=== PATIENT | female | born 1970 | race Caucasian/White ===

== ENCOUNTER 2017-09-28 14:01 | Inpatient (IN) | payer OTHER ==
[~2017-09-28] VITALS: Ht 162.6 cm; Wt 82.2 kg
[~2017-09-28 14:01] MED LIST: ALPRAZOLAM1 MG PO; CYCLOBENZAPRINE10 M1 PO; DELTASONE20 MG PO; HYDROXYCHLOROQ200 M2 PO; IBU800 MG PO; METHADONE H5 MG/5 ML PO; PERCOCET 325 MG1 TA2 PO; SYNTHROID112 MCG PO; TOPIRAMATE50 MG PO; VICODIN 5-3001 EACH PO; VITAMIN D2000 UNIT PO; ZOFRAN4 M1 SL
--- NOTE | 2017-09-28 15:10 | RADIOLOGY REPORT ---
EXAMINATION: XR CHEST CLINICAL INFORMATION: Chest pain. COMPARISON: 06/05/2014 TECHNIQUE: 2 views of the chest were obtained. FINDINGS: The cardiomediastinal silhouette is unremarkable. The lungs appear clear. There appears to be blunting of the right posterior costophrenic angle suggesting a small effusion. No consolidation, pulmonary edema or pneumothorax. There are minor multilevel degenerative changes of the spine without evidence of acute osseous abnormality. IMPRESSION: Blunting of the right posterior costophrenic angle suggesting a small right-sided effusion.
[2017-09-28 15:39] LABS: ABSOLUTE BASOPHIL COUNT 0.1 /CUMM (0.0-0.2); ABSOLUTE EOSINOPHIL COUNT 0.2 /CUMM (0.0-0.7); ABSOLUTE GRANULOCYTE CT 8.1 /CUMM (1.4-6.5); ABSOLUTE LYMPH COUNT 1.6 /CUMM (1.2-3.4); ABSOLUTE MONOCYTE COUNT 0.7 /CUMM (0.10-0.60); BASOPHIL % 0.5 % (0.0-2.0); EOSINOPHIL % 1.8 % (0-5); GRANULOCYTE % 76.1 % (42.2-75.2); HEMATOCRIT 41.9 % (37-47); MEAN CORPUSCULAR HGB 32.3 PG (27.0-31.0); MEAN CORPUSCULAR HGB CONC 33.6 G/DL (33.0-37.0); MEAN CORPUSCULAR VOLUME 96.1 FL (81.0-99.0); MEAN PLATELET VOLUME 7.7 FL (7.4-10.4); PLATELET COUNT 262 /CUMM (130-400); RBC DISTRIBUTION WIDTH 13.4 % (11.5-14.5); RED BLOOD CELL CT 4.36 /CUMM (4.20-5.40); WHITE BLOOD CELL COUNT 10.6 /CUMM (4.8-10.8)
--- NOTE | 2017-09-28 18:07 | ED CARDIAC/CP/PALPITATIONS ---
History of Present Illness General Chief Complaint: Chest Pain Stated Complaint: CP,LOWER BACK PAIN ON RT SIDE Source: patient Exam Limitations: no limitations Vital Signs & Intake/Output Vital Signs & Intake/Output Vital Signs Date Time Temp Pulse Resp B/P B/P Pulse O2 O2 Flow FiO2 Mean Ox Delivery Rate 09/28 2100 98.6 65 16 116/74 98 Room Air 09/28 1921 98.6 68 16 103/59 98 Room Air 09/28 1813 96 Room Air 09/28 1748 98.3 78 16 120/75 97 Room Air 09/28 1413 98.2 102 16 131/102 98 Room Air Room Air Allergies Coded Allergies: No Known Allergies (09/28/17) Reconcile Medications Alprazolam 1 MG TAB 1 TAB PO 4 TIMES/DAY ANXIETY (Reported) Cholecalciferol (Vitamin D3) (Vitamin D) 2,000 UNIT CAPSULE 1 CAP PO DAILY SUPPLEMENT (Reported) Cyclobenzaprine HCl 10 MG TABLET 1 TAB PO DAILY PRN MUSCLE SPASMS (Reported) Hydrocodone/Acetaminophen (Vicodin 5-300 MG Tablet) 1 EACH TABLET 1-2 TAB PO Q6P PRN pain Hydroxychloroquine Sulfate 200 MG TABLET 1 TAB PO BID UNKNOWN (Reported) Ibuprofen (Ibu) 800 MG TAB 1 TAB PO PRN PAIN (Reported) Levothyroxine Sodium (Synthroid) 112 MCG TABLET 1 TAB PO DAILY AC THYROID ( Reported) METHADONE HCL (Methadone HCl) 5 MG/5 ML [place] 28 MG PO DAILY PAIN (Reported) Prednisone (Deltasone) 20 MG TABLET 2 TAB PO DAILY RASH Topiramate 50 MG TAB 1 TAB PO BID MIGRAINES (Reported) Triage Note: PT TO TRIAGE WITH RIGHT CHEST PAIN THAT RADIATES INTO HER NECK. PT STATES SHE HAD THE SAME PAIN LAST WEEK AND IT RESOLVED ON ITS OWN. PT HAS NOT TAKEN ANY MEDS FOR PAIN. PT DENIES SOB. SKIN WARM AND DRY. Triage Nurses Notes Reviewed? yes Onset: Abrupt Duration: week(s):, changing over time, continues in ED, intermittent Timing: single episode today Quality/Severity: moderate, sharp, stabbing Location: right chest Radiation: neck, back Activities at Onset: none, rest Prior Chest Pain/Card Workup: no prior chest pain, no prior cardiac workup Modifying Factors: Worsens With: breathing, movement, palpation. Nitro Today/Relief: no nitro taken today Aspirin Today: no aspirin today LMP (ages 10-50): unknown : No Patient currently breastfeeds: No HPI: 46-year-old female past medical history of fibromyalgia, opioid abuse, migraines , hep C, presents for evaluation of chest pain. Patient states that symptoms started initially about one week ago and resolved on their own and restarted again today. The pain is located in the right side of the chest radiates up to the right shoulder right neck and right back. The pain is worse with deep inspiration and movement of the right upper extremity or palpation of the area. No trauma or triggering event. The pain is severe she rates his head is not taking any medicine for this. She is on methadone. No hemoptysis lower extremity edema recent surgery or history of blood clots. No personal family history of heart disease. There are no alleviating or aggravating factors. Nothing seems to make the pain better or worse. She does report some associated nausea but no vomiting no sweats or chills. (Balta Liz) Past History Travel History Traveled to [place] past 21 day No Medical History Any Pertinent Medical History? see below for history Neurological: migraine EENT: NONE Cardiovascular: hyperlipidemia Respiratory: asthma Gastrointestinal: NONE Hepatic: hepatitis C Renal: NONE Musculoskeletal: NONE Psychiatric: anxiety, IVDRUG HISTORY Endocrine: hypothyroidism Blood Disorders: NONE Cancer(s): thyroid cancer History of MRSA: No History of VRE: No History of CDIFF: No Surgical History Surgical History: hysterectomy Psychosocial History Who do you live with Significant Other What is your primary language P[place]deinig Tobacco Use: Current Daily Use Daily Tobacco Use Amount/Type: => 5 Cigarettes daily ETOH Use: denies use Illicit Drug Use: denies illicit drug use Family History Hx Contributory? No (Balta Liz) Review of Systems Review of Systems Constitutional: Reports: no symptoms. EENTM: Reports: no symptoms. Respiratory: Reports: see HPI, short of breath. Cardiovascular: Reports: see HPI, chest pain. GI: Reports: no symptoms. Genitourinary: Reports: no symptoms. Musculoskeletal: Reports: see HPI, back pain, muscle pain. Skin: Reports: no symptoms. Neurological/Psychological: Reports: no symptoms. Hematologic/Endocrine: Reports: no symptoms. Immunologic/Allergic: Reports: no symptoms. All Other Systems: Reviewed and Negative (Balta Liz) Physical Exam Physical Exam General Appearance: well developed/nourished, alert, awake, anxious, moderate distress Head: atraumatic, normal appearance Eyes: Bilateral: normal appearance, PERRL, EOMI. Ears, Nose, Throat: normal pharynx, normal ENT inspection, hearing grossly normal Neck: normal inspection, supple, full range of motion Respiratory: normal breath sounds, no respiratory distress, lungs clear, CHEST WALL TENDERNESS TO PALPATION dIFFUSELY. pAIN REPRODUCIBLE WITH RANGE OF MOTION OF THE RIGHT ARM Cardiovascular: normal peripheral pulses, tachycardia Peripheral Pulses: 2+ radial (R), 2+ radial (L) Gastrointestinal: normal bowel sounds, soft, no organomegaly, tenderness ( DIFFUSE ) Rectal: normal rectal tone, heme negative stool Back: normal inspection, normal range of motion, no vertebral tenderness Extremities: normal inspection, normal range of motion, no edema Neurologic/Psych: no motor/sensory deficits, awake, alert, oriented x 3, normal gait Skin: intact, normal color, warm/dry Lymphatic: no anterior cervical nani Core Measures ACS in differential dx? No CVA/TIA Diagnosis No Sepsis Present: No Sepsis Focused Exam Completed? No (Moiz LIGHT,Balta) Progress Differential Diagnosis: AMI, aortic dissection, atrial fibrillation, CHF/pulm edema, costochondritis, musculoskeletal pain, pancreatitis, pericarditis, pneumonia, pneumothorax, PSVT, pulmonary embolism, PUD/GERD, PVCs/PACs, rib fracture Plan of Care: Orders Procedure Date/time Status Heart Healthy Diet 09/29 B Active PARTIAL THROMBOPLASTIN TIME 09/29 0240 Active Pathway - chart 09/28 2124 Active House Staff 09/28 2124 Active Patient Data 09/28 2124 Active Code Status 09/28 2124 Active Patient Data 09/28 2034 Active Weight 09/28 2026 Active Patient Data 09/28 2016 Active ED Holding Orders 09/28 2008 Active Admit to inpatient 09/28 2008 Active Vital Signs 09/28 2008 Active Code Status 09/28 2008 Complete Add-on Test (ER Only) 09/28 1956 Active Add-on Test (ER Only) 09/28 1933 Active Intake & Output 09/28 1813 Active TROPONIN LEVEL 09/28 1800 Complete EKG 09/28 1800 Active URINALYSIS 09/28 1731 Complete Add-on Test (ER Only) 09/28 1730 Active Add-on Test (ER Only) 09/28 1702 Active PARTIAL THROMBOPLASTIN TIME 09/28 1524 Complete PROTHROMBIN TIME 09/28 1524 Complete LIPASE 09/28 1524 Complete D-DIMER 09/28 1524 Complete B-TYPE NATRIURETIC PEP (BNP) 09/28 1524 Complete TROPONIN LEVEL 09/28 1417 Complete COMPREHENSIVE METABOLIC PANEL 09/28 141 Complete CBC WITHOUT DIFFERENTIAL 09/28 141 Complete EKG 09/28 1402 Active VTE Mechanical Prophylaxis 09/28 UNK Active Current Medications Sig/Elinor Start time Last Medication Dose Stop Time Status Admin Acetaminophen 325 MG Q6 PRN 09/28 2129 AC (Tylenol) Heparin Sodium 25,000 UNIT Q24H 09/29 1999 AC 09/28 (Porcine) 2039 (Heparin) Sodium Chloride 500 ML Laboratory Tests 09/28/171818: Urinalysis LIGHT H, Urine Color YEL, Urine Clarity CLEAR, Urine pH 6.0, Ur Specific [place] >= 1.030, Urine Protein NEG, Urine Ketones NEG, Urine Nitrite NEG, Urine Bilirubin NEG, Urine Urobilinogen 0.2, Ur Leukocyte Esterase NEG, Ur Microscopic SEDIMENT EXAMINED, Urine RBC 1-3, Ur Epithelial Cells MOD H, Urine Bacteria MANY H, Urine Mucus MANY H, Urine Hemoglobin TRACE-INTACT, Urine Glucose NEG 09/28/17 181: Troponin I < 0.01 09/28/17 1524: Anion Gap 11, Estimated GFR > 60, BUN/Creatinine Ratio 17.1, Glucose 82, Calcium 9.2, Total Bilirubin 0.7, AST 14, ALT 19, Alkaline Phosphatase 75, Troponin I < 0.01, Sfg-L-Xaqcipzzaef Pept 43.2, Total Protein 6.8, Albumin 4.2, Globulin 2.6, Albumin/Globulin Ratio 1.6, Lipase 113, PT 11.8, INR 1.08, APTT 32, D-Dimer High Sensitivty 893 H, CBC w Diff NO MAN DIFF REQ, RBC 4.36, MCV 96.1, MCH 32.3 H, MCHC 33.6, RDW 13.4, MPV 7.7, Gran % 76.1 H, Lymphocytes % 14.7 L, Monocytes % 6.9, Eosinophils % 1.8, Basophils % 0.5, Absolute Granulocytes 8.1 H, Absolute Lymphocytes 1.6, Absolute Monocytes 0.7 H, Absolute Eosinophils 0.2, Absolute Basophils 0.1 Patient seen and evaluated. She certainly with pleuritic chest pain. On initial evaluation she is tachycardic. No hypoxia. The pain is reproducible with palpation and range of motion. We'll check blood work including d-dimer and EKGs. BLOOD WORK Shows an elevated d-dimer. CTA ordered. Patient was medicated with Toradol and is feeling somewhat better. Troponin negative remaining blood work is within normal limits. CTA is positive for a segmental PE. No signs of right heart strain troponin was negative 2 EKG unchanged 2. Spoke with Dr. DARYL de león regarding possibility of discharge on hour course however he recommends admission and heparinization. Rectal exam is negative for blood HEPARIN been ordered. Patient be admitted to telemetry. Discussed with Dr. Garcia he agrees. Diagnostic Imaging: Viewed by Me: CT Scan. Discussed w/RAD: CT Scan. Initial ED EKG: no ST T wave changes, SINUS TACHYCARDIA RATE 100 Comments: PATIENT: ROBIN CHAVEZ PRESENT AGE: 46 PATIENT ACCOUNT NO: [id number] : 72 LOCATION: [facility] ORDERING PHYSICIAN: Balta LIGHT SERVICE DATE: 09/28/17 EXAM TYPE: CAT - CT ABD & PELVIS W IV CONTRAST; CTA CHEST-PULMONARY EMBOLISM EXAMINATION: CT ANGIOGRAM OF THE CHEST WITH CONTRAST (CT PULMONARY ANGIOGRAM FOR PE) CLINICAL INFORMATION: Chest pain and shortness of breath. COMPARISON: No pertinent prior studies are available for comparison. TECHNIQUE: Prior to contrast administration, noncontrast localization images were obtained. Subsequently, multidetector volumetric imaging was performed from the thoracic inlet to below the diaphragms following the administration of 95 mL Optiray 320 intravenous contrast. No contrast reaction reported. Sagittal, coronal, and MIP oblique sagittal reformatted images were obtained on the CT workstation, uploaded to PACS, and reviewed. DLP: Total exam dose-length product 1086 mGy-cm (for CT exams of the chest, abdomen and pelvis) FINDINGS: QUALITY OF STUDY/CONTRAST BOLUS: Satisfactory. PULMONARY ARTERIES: Pulmonary arteries are normal in size. There is an embolic filling defect within a subsegmental branch of the medial right lower lobe. Otherwise, no embolic filling defects are identified within the main, lobar or segmental vessels. THORACIC AORTA: Thoracic aorta is normal in caliber; no aneurysm or dissection. LUNGS AND PLEURA: Trachea and central airways are widely patent and normal in caliber. Small right pleural effusion with compressive atelectasis in posterior right lower lobe. Otherwise, lungs are unremarkable. CARDIOVASCULAR: The heart size is normal. No inward bowing of the interventricular septum. No pericardial effusion. MEDIASTINUM: The esophagus has normal wall thickness. No mediastinal mass. LYMPHATICS: No pathologic sized axillary, hilar or mediastinal lymph nodes. UPPER ABDOMEN: No reflux of contrast into the inferior vena cava. Abdominal findings are dictated separately (see below). OSSEOUS STRUCTURES: No acute or suspicious osseous abnormality within the thorax. IMPRESSION: - There is a pulmonary embolism within a subsegmental branch of the right lower lobe. - Associated small right pleural effusion with compressive atelectasis of the posterior right lower lobe. The critical test result of the pulmonary embolism was discussed with Balta Rockwell of the Emergency Room at 7:33 PM on 09/28/2017 and it was ascertained that the content and the importance of the findings was understood at the time of the direct communication. EXAMINATION: CT ABDOMEN AND PELVIS WITH IV CONTRAST CLINICAL INFORMATION: Suprapubic abdominal pain. Evaluate for appendicitis. COMPARISON: CT images of the abdomen and pelvis from 06/11/2012. Abdominal ultrasound from 05/15/2017. TECHNIQUE: Multidetector CT imaging examination of the abdomen and pelvis was performed after intravenous contrast administration (as noted in the chest CT above). Axial images are displayed at 0.625 mm and 5 mm slice thickness. Coronal and sagittal reformatted images were generated at the technologist's workstation and submitted for review. FINDINGS: HEPATOBILIARY: Liver has normal size, contour and attenuation. Gallbladder is normal. No intrahepatic or extra hepatic bile duct dilatation. PANCREAS: Normal. SPLEEN: Normal. ADRENAL GLANDS: Normal. KIDNEYS, URETERS, BLADDER: Kidneys are normal in size and enhance symmetrically. No nephrolithiasis, hydroureteronephrosis or perinephric edema. The urinary bladder is unremarkable. GI TRACT AND PERITONEUM: Bowel loops are normal in caliber. The appendix is normal. No evidence of acute inflammation or obstruction along the gastrointestinal tract. No ascites, pneumoperitoneum or abscess. ABDOMINAL WALL: Unremarkable. VASCULAR: Abdominal aorta is normal in caliber. Inferior vena cava is normal. LYMPH NODES: No pathologic sized lymph nodes within the abdomen or pelvis. PELVIC VISCERA: The uterus is absent. The dominant follicle of the left ovary measures up to 2.5 cm. No pelvic free fluid. OSSEOUS STRUCTURES: The lumbar vertebra have normal height and alignment. No evidence of degenerative disc disease, fracture or subluxation. Pelvic bones and proximal femurs are intact. IMPRESSION: - No acute findings within the abdomen or pelvis. - No evidence of enteritis, appendicitis or bowel obstruction. DICTATED BY: Kerwin Avitia MD DATE/TIME DICTATED:09/28/171919 ROUTE SALESMAN AND DRIVER:MITCH DATE/TIME TRANSCRIBED:09/28/171919 CONFIDENTIAL, DO NOT COPY WITHOUT APPROPRIATE AUTHORIZATION. <Electronically signed in Other Vendor System> SIGNED BY: Kerwin Avitia MD 09/28/171937 PATIENT: ROBIN CHAVEZ PRESENT AGE: 46 PATIENT ACCOUNT NO: [id number] : 72 LOCATION: [facility] ORDERING PHYSICIAN: Balta LIGHT SERVICE DATE: 09/28/17 EXAM TYPE: CAT - CT ABD & PELVIS W IV CONTRAST; CTA CHEST-PULMONARY EMBOLISM EXAMINATION: CT ANGIOGRAM OF THE CHEST WITH CONTRAST (CT PULMONARY ANGIOGRAM FOR PE) CLINICAL INFORMATION: Chest pain and shortness of breath. COMPARISON: No pertinent prior studies are available for comparison. TECHNIQUE: Prior to contrast administration, noncontrast localization images were obtained. Subsequently, multidetector volumetric imaging was performed from the thoracic inlet to below the diaphragms following the administration of 95 mL Optiray 320 intravenous contrast. No contrast reaction reported. Sagittal, coronal, and MIP oblique sagittal reformatted images were obtained on the CT workstation, uploaded to PACS, and reviewed. DLP: Total exam dose-length product 1086 mGy-cm (for CT exams of the chest, abdomen and pelvis) FINDINGS: QUALITY OF STUDY/CONTRAST BOLUS: Satisfactory. PULMONARY ARTERIES: Pulmonary arteries are normal in size. There is an embolic filling defect within a subsegmental branch of the medial right lower lobe. Otherwise, no embolic filling defects are identified within the main, lobar or segmental vessels. THORACIC AORTA: Thoracic aorta is normal in caliber; no aneurysm or dissection. LUNGS AND PLEURA: Trachea and central airways are widely patent and normal in caliber. Small right pleural effusion with compressive atelectasis in posterior right lower lobe. Otherwise, lungs are unremarkable. CARDIOVASCULAR: The heart size is normal. No inward bowing of the interventricular septum. No pericardial effusion. MEDIASTINUM: The esophagus has normal wall thickness. No mediastinal mass. LYMPHATICS: No pathologic sized axillary, hilar or mediastinal lymph nodes. UPPER ABDOMEN: No reflux of contrast into the inferior vena cava. Abdominal findings are dictated separately (see below). OSSEOUS STRUCTURES: No acute or suspicious osseous abnormality within the thorax. IMPRESSION: - There is a pulmonary embolism within a subsegmental branch of the right lower lobe. - Associated small right pleural effusion with compressive atelectasis of the posterior right lower lobe. The critical test result of the pulmonary embolism was discussed with Balta Rocwkell of the Emergency Room at 7:33 PM on 09/28/2017 and it was ascertained that the content and the importance of the findings was understood at the time of the direct communication. EXAMINATION: CT ABDOMEN AND PELVIS WITH IV CONTRAST CLINICAL INFORMATION: Suprapubic abdominal pain. Evaluate for appendicitis. COMPARISON: CT images of the abdomen and pelvis from 06/11/2012. Abdominal ultrasound from 05/15/2017. TECHNIQUE: Multidetector CT imaging examination of the abdomen and pelvis was performed after intravenous contrast administration (as noted in the chest CT above). Axial images are displayed at 0.625 mm and 5 mm slice thickness. Coronal and sagittal reformatted images were generated at the technologist's workstation and submitted for review. FINDINGS: HEPATOBILIARY: Liver has normal size, contour and attenuation. Gallbladder is normal. No intrahepatic or extra hepatic bile duct dilatation. PANCREAS: Normal. SPLEEN: Normal. ADRENAL GLANDS: Normal. KIDNEYS, URETERS, BLADDER: Kidneys are normal in size and enhance symmetrically. No nephrolithiasis, hydroureteronephrosis or perinephric edema. The urinary bladder is unremarkable. GI TRACT AND PERITONEUM: Bowel loops are normal in caliber. The appendix is normal. No evidence of acute inflammation or obstruction along the gastrointestinal tract. No ascites, pneumoperitoneum or abscess. ABDOMINAL WALL: Unremarkable. VASCULAR: Abdominal aorta is normal in caliber. Inferior vena cava is normal. LYMPH NODES: No pathologic sized lymph nodes within the abdomen or pelvis. PELVIC VISCERA: The uterus is absent. The dominant follicle of the left ovary measures up to 2.5 cm. No pelvic free fluid. OSSEOUS STRUCTURES: The lumbar vertebra have normal height and alignment. No evidence of degenerative disc disease, fracture or subluxation. Pelvic bones and proximal femurs are intact. IMPRESSION: - No acute findings within the abdomen or pelvis. - No evidence of enteritis, appendicitis or bowel obstruction. DICTATED BY: Kerwin Avitia MD DATE/TIME DICTATED:09/28/171919 ROUTE SALESMAN AND DRIVER:MITCH DATE/TIME TRANSCRIBED:09/28/171919 CONFIDENTIAL, DO NOT COPY WITHOUT APPROPRIATE AUTHORIZATION. <Electronically signed in Other Vendor System> SIGNED BY: Kerwin Avitia MD 09/28/171937 (Balta Liz) Departure Departure Disposition: STILL A PATIENT Condition: Stable Clinical Impression Primary Impression: Pulmonary embolism Qualifiers: Pulmonary embolism type: other Chronicity: acute Acute cor pulmonale presence: without acute cor pulmonale Qualified Code: I26.99 - Other pulmonary embolism without acute cor pulmonale Referrals: Jazmyn Sarabia APRN (PCP/Family) Departure Forms: Customer Survey General Discharge Information Admission Note Spoke With: Salvatore Montoya MD Documentation of Exam: Documentation of any treatments & extenuating circumstances including Concerns Regarding Discharge (functional status, medication knowledge or non-compliance, living conditions, etc.) that warrant an admission rather than observation: [ Hypercoagulability workup, telemetry, serial labs, IV heparin, pulmonology consult, hematology consult] (Balta Liz) PA/SALES TEAM RECRUITER Co-Sign Statement Statement: ED Attending supervision documentation- [X] I saw and evaluated the patient. I have also reviewed all the pertinent lab results and diagnostic results. I agree with the findings and the plan of care as documented in the PA's/SALES TEAM RECRUITER's documentation. [X] I have reviewed the ED Record and agree with the PA's/SALES TEAM RECRUITER's documentation. [] Additions or exceptions (if any) to the PAs/SALES TEAM RECRUITER's note and plan are summarized below: [Patient to be admitted for a pulmonary embolism. Anticoagulation, pulmonary consultation] (Radha VELEZ,Isidro Maldonado) Critical Care Note Critical Care Note Critical Care Time: non-applicable (Balta Liz)
--- NOTE | 2017-09-28 19:38 | CT SCAN REPORT ---
EXAMINATION: CT ANGIOGRAM OF THE CHEST WITH CONTRAST (CT PULMONARY ANGIOGRAM FOR PE) CLINICAL INFORMATION: Chest pain and shortness of breath. COMPARISON: No pertinent prior studies are available for comparison. TECHNIQUE: Prior to contrast administration, noncontrast localization images were obtained. Subsequently, multidetector volumetric imaging was performed from the thoracic inlet to below the diaphragms following the administration of 95 mL Optiray 320 intravenous contrast. No contrast reaction reported. Sagittal, coronal, and MIP oblique sagittal reformatted images were obtained on the CT workstation, uploaded to PACS, and reviewed. DLP: Total exam dose-length product 1086 mGy-cm (for CT exams of the chest, abdomen and pelvis) FINDINGS: QUALITY OF STUDY/CONTRAST BOLUS: Satisfactory. PULMONARY ARTERIES: Pulmonary arteries are normal in size. There is an embolic filling defect within a subsegmental branch of the medial right lower lobe. Otherwise, no embolic filling defects are identified within the main, lobar or segmental vessels. THORACIC AORTA: Thoracic aorta is normal in caliber; no aneurysm or dissection. LUNGS AND PLEURA: Trachea and central airways are widely patent and normal in caliber. Small right pleural effusion with compressive atelectasis in posterior right lower lobe. Otherwise, lungs are unremarkable. CARDIOVASCULAR: The heart size is normal. No inward bowing of the interventricular septum. No pericardial effusion. MEDIASTINUM: The esophagus has normal wall thickness. No mediastinal mass. LYMPHATICS: No pathologic sized axillary, hilar or mediastinal lymph nodes. UPPER ABDOMEN: No reflux of contrast into the inferior vena cava. Abdominal findings are dictated separately (see below). OSSEOUS STRUCTURES: No acute or suspicious osseous abnormality within the thorax. IMPRESSION: - There is a pulmonary embolism within a subsegmental branch of the right lower lobe. - Associated small right pleural effusion with compressive atelectasis of the posterior right lower lobe. The critical test result of the pulmonary embolism was discussed with Balta Rockwell of the Emergency Room at 7:33 PM on 09/28/2017 and it was ascertained that the content and the importance of the findings was understood at the time of the direct communication. EXAMINATION: CT ABDOMEN AND PELVIS WITH IV CONTRAST CLINICAL INFORMATION: Suprapubic abdominal pain. Evaluate for appendicitis. COMPARISON: CT images of the abdomen and pelvis from 06/11/2012. Abdominal ultrasound from 05/15/2017. TECHNIQUE: Multidetector CT imaging examination of the abdomen and pelvis was performed after intravenous contrast administration (as noted in the chest CT above). Axial images are displayed at 0.625 mm and 5 mm slice thickness. Coronal and sagittal reformatted images were generated at the technologist's workstation and submitted for review. FINDINGS: HEPATOBILIARY: Liver has normal size, contour and attenuation. Gallbladder is normal. No intrahepatic or extra hepatic bile duct dilatation. PANCREAS: Normal. SPLEEN: Normal. ADRENAL GLANDS: Normal. KIDNEYS, URETERS, BLADDER: Kidneys are normal in size and enhance symmetrically. No nephrolithiasis, hydroureteronephrosis or perinephric edema. The urinary bladder is unremarkable. GI TRACT AND PERITONEUM: Bowel loops are normal in caliber. The appendix is normal. No evidence of acute inflammation or obstruction along the gastrointestinal tract. No ascites, pneumoperitoneum or abscess. ABDOMINAL WALL: Unremarkable. VASCULAR: Abdominal aorta is normal in caliber. Inferior vena cava is normal. LYMPH NODES: No pathologic sized lymph nodes within the abdomen or pelvis. PELVIC VISCERA: The uterus is absent. The dominant follicle of the left ovary measures up to 2.5 cm. No pelvic free fluid. OSSEOUS STRUCTURES: The lumbar vertebra have normal height and alignment. No evidence of degenerative disc disease, fracture or subluxation. Pelvic bones and proximal femurs are intact. IMPRESSION: - No acute findings within the abdomen or pelvis. - No evidence of enteritis, appendicitis or bowel obstruction.
[2017-09-28 20:03] LABS: PT 11.8 SEC (9.4-12.5); PTT 32 SEC (25-37)
--- NOTE | 2017-09-28 20:47 | History & Physical ---
MarinRosa 09/28/172045: General Information and HPI MD Statement: I have seen and personally examined ROBIN GARCIA and documented this H&P. The patient is a 46 year old F who presented with a patient stated chief complaint of [PE]. Source of Information: patient, old records Exam Limitations: no limitations History of Present Illness: Ms. Garcia is a 46yo F w/ PMH of migraine not on Topamax, hypothyroidism s/P thyroidectomy secondary to thyroid cancer, HLD, anxiety on as needed Xanax, Hx Hep C/IVDA, s/p hysterectomy 2/2 endometriosis, fibromyalgia. Patient endorsed chest pain for the past 2 days, with the first episode around on Thursday with right-sided neck/back pain that she took some Motrin and rested and went away. However the same kind of thing happened today at work was on specific trigger and this was like a stabbing pain in the right side of the chest, and she stopped walking and she cannot really talk over the phone. She was sent to the ER after. Patient had no previous similar episodes, however had the grandmother that has some blood clot history. Patient denies any OCP use as she is status post hysterectomy. Patient had no recent major surgeries, has been ambulatory in the house, and had recent travel to [place] by a car within [address]. Patient has a history of using Plaquenil, however she was not aware of the medication name. She had a remote history of "skin bumps" at the back of her ear, that she related to the use of Plaquenil, however she is not sure as well. She used to see a algebra tutor in [place]. However patient denied any awareness of vocabulary including sarcoidosis/lupus. During our clinical interaction, patient denied fever/night sweat/weight change/ cough/SOB/Chest Pain/Palpitation/exercise intolerance/Abdominal pain/bowel movement/urinary abnormality, or other skin/musculoskeletal/neurological disorders/mood change/insomnia/dietary/appetite change. -Smoking: current active smoker -Alcohol: occassional -Rec Drugs: remote use, now on 28mg methadone daily by [employer] [facility] ??? Allergies/Medications Allergies: Uncoded Allergies: VITAMIN B INJECTION (SWELLING 09/28/17) Home Med list Alprazolam 1 MG TAB 1 TAB PO 4 TIMES/DAY ANXIETY (Reported) Cholecalciferol (Vitamin D3) (Vitamin D) 2,000 UNIT CAPSULE 1 CAP PO DAILY SUPPLEMENT (Reported) Cyclobenzaprine HCl 10 MG TABLET 1 TAB PO DAILY PRN MUSCLE SPASMS (Reported) Hydrocodone/Acetaminophen (Vicodin 5-300 MG Tablet) 1 EACH TABLET 1-2 TAB PO Q6P PRN pain Hydroxychloroquine Sulfate 200 MG TABLET 1 TAB PO BID UNKNOWN (Reported) Ibuprofen (Ibu) 800 MG TAB 1 TAB PO PRN PAIN (Reported) Levothyroxine Sodium (Synthroid) 112 MCG TABLET 1 TAB PO DAILY AC THYROID ( Reported) METHADONE HCL (Methadone HCl) 5 MG/5 ML [place] 28 MG PO DAILY PAIN (Reported) Prednisone (Deltasone) 20 MG TABLET 2 TAB PO DAILY RASH Topiramate 50 MG TAB 1 TAB PO BID MIGRAINES (Reported) Past History Travel History Traveled to [place] past 21 day No Medical History Neurological: migraine EENT: NONE Cardiovascular: hyperlipidemia Respiratory: asthma Gastrointestinal: NONE Hepatic: hepatitis C Renal: NONE Musculoskeletal: NONE Psychiatric: anxiety, IVDRUG HISTORY Endocrine: hypothyroidism Blood Disorders: NONE Cancer(s): thyroid cancer History of MRSA: No History of VRE: No History of CDIFF: No Surgical History Surgical History: hysterectomy Past Family/Social History Psychosocial History ETOH Use: denies use Illicit Drug Use: denies illicit drug use Review of Systems Review of Systems Constitutional: Reports: see HPI. Exam & Diagnostic Data Last 24 Hrs of Vital Signs/I&O Vital Signs Date Time Temp Pulse Resp B/P B/P Pulse O2 O2 Flow FiO2 Mean Ox Delivery Rate 09/28 2101 98.6 65 16 116/74 98 Room Air 09/28 1921 98.6 68 16 103/59 98 Room Air 09/28 1813 96 Room Air 09/28 1748 98.3 78 16 120/75 97 Room Air 09/28 1413 98.2 102 16 131/102 98 Room Air Room Air Intake & Output 09/28 1600 09/28 0800 09/28 0000 Intake Total Output Total Balance Patient 72.575 kg Weight Physical Exam General Appearance Alert, Oriented X3, Cooperative, Mild Distress, anxious Skin No Rashes, No Breakdown, No Significant Lesion Skin Temp/Moisture Exam: Warm/Dry Sepsis Skin Exam (color): Normal for Ethnicity HEENT Atraumatic, PERRLA Neck Supple, No JVD Cardiovascular Regular Rate Lungs Clear to Auscultation, Normal Air Movement Abdomen Soft, tenderness on palpation Neurological Normal Speech Extremities No Cyanosis, Normal Pulses, No Tenderness/Swelling, trace edema BLEs Last 24 Hrs of Labs/Trace: Laboratory Tests 09/28/179: Urinalysis LIGHT H, Urine Color YEL, Urine Clarity CLEAR, Urine pH 6.0, Ur Specific [place] >= 1.030, Urine Protein NEG, Urine Ketones NEG, Urine Nitrite NEG, Urine Bilirubin NEG, Urine Urobilinogen 0.2, Ur Leukocyte Esterase NEG, Ur Microscopic SEDIMENT EXAMINED, Urine RBC 1-3, Ur Epithelial Cells MOD H, Urine Bacteria MANY H, Urine Mucus MANY H, Urine Hemoglobin TRACE-INTACT, Urine Glucose NEG 09/28/17 1818: Troponin I < 0.01 09/28/17 1524: Anion Gap 11, Estimated GFR > 60, BUN/Creatinine Ratio 17.1, Glucose 82, Calcium 9.2, Total Bilirubin 0.7, AST 14, ALT 19, Alkaline Phosphatase 75, Troponin I < 0.01, [id number] Pept 43.2, Total Protein 6.8, Albumin 4.2, Globulin 2.6, Albumin/Globulin Ratio 1.6, Lipase 113, PT 11.8, INR 1.08, APTT 32, D-Dimer High Sensitivty 893 H, CBC w Diff NO MAN DIFF REQ, RBC 4.36, MCV 96.1, MCH 32.3 H, MCHC 33.6, RDW 13.4, MPV 7.7, Gran % 76.1 H, Lymphocytes % 14.7 L, Monocytes % 6.9, Eosinophils % 1.8, Basophils % 0.5, Absolute Granulocytes 8.1 H, Absolute Lymphocytes 1.6, Absolute Monocytes 0.7 H, Absolute Eosinophils 0.2, Absolute Basophils 0.1 Diagnostic Data EKG Results NSR Assessment/Plan Assessment: On admission, Vitals: Stable afebrile, tachycardia on ER admission 102 decreased to 68, BP 103 /59, 98% on room air -CBC: Unremarkable, PT/INR normal -BMP: Unremarkable, negative troponin, d-dimer a 93, -UA/Microbiology: Bacteriuria -Chest CT positive for PE within a subsegmental branch of the right lower lobe. Associated small right pleural effusion, -EKG: NSR w/o significant ST-T abnormalities. -Interventions in ER: Start a heparin 25,000 units drip Problem list & Assessment: Patient presented with clinical findings of chest pain related to pulmonary embolism showing on CTA, without any acute EKG/troponin change. Patient is currently already on heparin drip, with no recent prolonged travel/sedatary life /major surgical history/malignancy,, however questionable rheumatology related medical history (use of Plaquenil), and active smoker with past medical history of thyroid cancer. Further evaluation of the etiology of the pulmonary embolism , besides being active smoker need to be done. #Pulmonary embolism on right side of the lungs #Methadone user #PMH of migraine not on Topamax, hypothyroidism s/P thyroidectomy, HLD, anxiety, Hx Hep C/IVDA, s/p hysterectomy 2/2 endometriosis Hospital Course: - Admit to general medicine floor DVT prophylaxis Heparin drip + ALPS Heart healthy diet Full Code ` As Ranked By This Provider Problem List: 1. Pulmonary embolism Qualifiers Pulmonary embolism type: other Chronicity: acute Acute cor pulmonale presence: without acute cor pulmonale Qualified Code: I26.99 - Other pulmonary embolism without acute cor pulmonale Core Measures/Misc (02/08) Acute Coronary Syndrome ACS Diagnosis: No Congestive Heart Failure Congestive Heart Failure Diagnosis No Cerebrovascular Accident CVA/TIA Diagnosis: No VTE (View Protocol) VTE Risk Factors Age>40 No Mechanical VTE Prophylaxis d/t N/A MechProphylax Ordered No VTE Pharm Prophylaxis d/t NA PharmProphylax ordered Sepsis (View protocol) Sepsis Present: No Susy Underwood 09/29/17 0017: Resident Review Statement Resident Statement: examined this patient, discussed with policy intern Other Findings: Patient is a 46-year-old female with past medical history of migraines(on ibuprofen), hypothyroidism s/p thyroidectomy secondary to thyroid cancer, fibromyalgia, hyperlipidemia, hep C, IV drug user, anxiety on Xanax,s/p hysterectomy2/2 endometriosis, presented to the ER with a chief complaint of right-sided chest pain for past 1 day. Patient reports that she has first episode of chest pain on Thursday. Pain started when she was at rest, located over her right breast, stabbing kind radiating down her right arm and back. She took Motrin with some relief in the pain. She had the second episode of pain today which was similar in nature but did not get relieved with morphine. The pain was so intense that she found it hard to breathe. She complained of palpitations, shortness of breath and anxiety. She couldn't talk to her boyfriend over the phone due to the intensity of the pain. Patient denies any fevers, chills, nausea, vomiting, abdominal pain, urinary or bowel symptoms. Reports a weight gain of a few pounds over the past few days. No use of OCPs. No history of APLA, miscarriages. Patient has been pretty active over the last few days, travel to [place] last weekend spending 2 hours in the car. Reports history of clots in grandmother/stroke. Patient is on methadone for chronic pains. Off note patient's reconsult meds shows that she has been on hydroxychloroquine over the past year prescribed by her algebra tutor. Patient unable to tell the cause. She did report some cutaneous lesions behind her ear ? Cutaneous sarcoid/SLE. She also has history of fibromyalgia for which she followed up with the algebra tutor. Vitals in the ED temperature 98.2, pulse 102, respiration 16, blood pressure 138 /102, saturating 98% on room air. Labs were normal. EKG: Sinus tach at a rate of 100, no ST-T wave changes, no right heart strain CTA showed pulmonary embolism in the sub segmental branch of the right lower lobe. Associated small right-sided pleural effusion with compressive atelectasis of the posterior right lower lobe. Patient was started on IV heparin in the ED Physical exam General: Awake, alert, anxious, moderate distress HEENT: PERRLA, EOMI Chest: Clear breath sounds bilaterally CVS: Tachycardia, S1 and S2 heard Abdomen: Tenderness in the epigastric area Extremities: 1+ pitting edema bilateral extremities Assessment Pulmonary embolism (likely unprovoked) Has Risk factors- unclear if the patient has history of SLE, h/o thyroid malignancy.?H/O estrogen use s/p hysterectomy, Smoker) Smoker Hypothyroidism S/P thyroidectomy 2/2 thyroid cancer Methadone user Fibromyalgia Hyperlipidemia Anxiety History of SLE? Cutaneous lesions? Plan * Admit to [facility] * Vitals per protocol * Check lupus antibodies * Patient started on IV heparin in the ED plan to change to an NOAC in a.m. * Check lower extremity bilateral Doppler's to rule out DVT * We will add proBNP to the existing labs * Check troponin 3 sets * Unclear if the patient has a history of lupus. She was prescribed hydroxychloroquine by algebra tutor at [place]. Patient unable to give the exact reason why she was prescribed the medication. Please try to get records from [place] regarding her rheumatological conditions. * Patient is on methadone 28 mg for chronic pains. Please confirm dose in a.m. She gets it from [employer] [facility]? * Patient denied to see a psychiatrist at this time. * DVT prophylaxis IV heparin * Full code * [id number] pain pathway Salvatore Montoya 09/29/17 0438: Attending MD Review Statement Attending Statement Attending MD Statement: examined this patient, discuss w/resident/PA/APIARIST, agreed w/resident/PA/APIARIST, discussed with family, reviewed EMR data (avail), reviewed images, amended to note Attending Assessment/Plan: CC: Right-sided chest pain PMH: Migraine, fibromyalgia, arthritis, tendinitis, hypothyroidism secondary to thyroidectomy secondary to thyroid cancer, anxiety, S/P hysterectomy, history of hep C not treated but viral load undetectable (according to patient) , history of IVDU 20 years back currently on methadone Patient came to ER for right-sided chest pain radiating to her neck, stabbing in nature, worse with deep inspiration and coughing, not associated with cough or sputum production, no history of hemoptysis, fever or chills. She could not take deep breath each worried her so she came to ER. She had similar pain approximately 3-4 days back for which she took ibuprofen and Motrin and try to take the rest and the pain resolved but then reoccurred today again. She never had similar pain before. She endorses weight gain and feeling puffy. Last many days she is not feeling very well so she is resting most of the time. She does household work but appears to have sedentary lifestyle. She had one at age of 18, denies any skin rashes. She has history of arthritis but unclear about what kind. Vitals: Temperature 98.2, pulse 102, RR 16, blood pressure 120/75, saturating 98 % on room air. On exam: A O 3, cooperative, no acute distress, neck supple, JVD normal, no lymphadenopathy, mucosa moist, no focal neurological deficit, no dependent edema , small rash behind her ears and possible malar rash CVS: S1-S2, RRR. RS: Clear to auscultate bilaterally. Abdomen: Soft, NT, ND, bowel sounds present. CTA chest: - There is a pulmonary embolism within a subsegmental branch of the right lower lobe. - Associated small right pleural effusion with compressive atelectasis of the posterior right lower lobe. CT with IV contrast abdomen and pelvis: - No acute findings within the abdomen or pelvis. - No evidence of enteritis, appendicitis or bowel obstruction. Assessment and plan 46-year-old female with above-mentioned past medical history presented in ER for right-sided chest pain radiating up to neck. She was mildly tachycardic on examination otherwise unremarkable, her d-dimer was elevated so CTA was obtained which showed right subsegmental pulmonary embolism. It's unclear whether this is provoked or unprovoked, appears most likely unprovoked. Patient has sedentary lifestyle and has been sleeping for many hours last few days secondary to lethargy, tiredness, body aches and arthritis but it's less likely precipitated PE. Patient appears to be on some DMARDs in the past: Hydroxychloroquine but she was not sure why she is on those medications, currently not taking it. Prescriber is algebra tutor at [place]. Patient may have connective tissue disorder, lupus antibodies or antiphospholipid antibodies precipitating this unprovoked PE. + Subsegmental right lower lobe PE + History of Migraine, fibromyalgia, arthritis, tendinitis, hypothyroidism secondary to thyroidectomy secondary to thyroid cancer, anxiety, S/P hysterectomy, history of hep C not treated but viral load undetectable ( according to patient) , history of IVDU 20 years back currently on methadone - Admit to general medicine - Continue heparin (adverse effect of anticoagulation discussed, warning signs discussed) - 2-D echocardiogram in a.m. - Serial troponins and ECGs - Obtain records from [place] [facility] - Confirm her dose of methadone before restarting - Obtain proBNP - Continue her home doses of levothyroxine
[2017-09-28 23:00] VITALS: BP 130/82
[2017-09-29 03:14] LABS: PTT 82 SEC (25-37)
--- NOTE | 2017-09-29 04:39 | Admission Certification ---
Admission Certification Certification Statement - As attending physician, I certify that at the time of - admission, based on clinical presentation, severity of - symptoms, need for further diagnostic testing and - therapeutic interventions, and risk of adverse outcomes - without in-hospital treatment, in my clinical assessment, - this patient requires an acute hospital stay for a minimum - of two nights or longer. I have also considered psychsocial - factors such as support system, advanced age, financial - issues, cognitive issues, and failed out-patient treatments, - past re-admission history, safety of patient, and lack of - compliance as applicable. Specific rationale supporting this admission is: Right subsegmental lower lobe PE
[2017-09-29 06:45] VITALS: BP 122/70
--- NOTE | 2017-09-29 07:42 | PN- Housestaff ---
Ludy VELEZ,Jacqueline 09/29/17 0742: Subjective Follow-up For: 1. Pulmonary embolism; unprovoked 2. Hypothyroidism 3. Anxiety 4. Fibromyalgia Complaints: pain scale (0-10) Subjective: Patient seen and examined. She is in no acute distress but notes that earlier she had a short bout of chest pain. It was helped by tylenol. At the time of interview she only complains of her chronic pain that she associates with her fibromyalgia. Complains of this pain in her left leg from the hip to the toe. She denies any cough or SOB. Review of Systems Constitutional: Reports: no symptoms. EENTM: Reports: no symptoms. Cardiovascular: Reports: chest pain. Respiratory: Reports: no symptoms. Gastrointestinal: Reports: no symptoms. Genitourinary: Reports: no symptoms. Musculoskeletal: Reports: joint pain, muscle pain. Skin: Reports: no symptoms. Neurological/Psychological: Reports: anxiety. Objective Last 24 Hrs of Vital Signs/I&O Vital Signs Date Time Temp Pulse Resp B/P B/P Pulse O2 O2 Flow FiO2 Mean Ox Delivery Rate 09/29 1515 98.0 58 18 118/72 96 Room Air 09/29 0645 97.4 63 20 122/70 97 Room Air 09/28 2302 Room Air 09/28 2300 97.6 69 22 130/82 97 Room Air 09/28 2101 98.6 65 16 116/74 98 Room Air Intake & Output 09/29 1600 /08 0800 05/08 0000 Intake Total 922 208 60 Output Total Balance 922 208 60 Intake, IV 182 208 Intake, Oral 740 60 Number 0 Bowel Movements Patient 181 lb Weight Weight Bed scale Measurement Method Physical Exam General Appearance: Alert, Oriented X3, Cooperative, No Acute Distress Skin: No Rashes, No Breakdown, No Significant Lesion Skin Temp/Moisture Exam: Warm/Dry Sepsis Skin Exam (color): Normal for Ethnicity HEENT: Atraumatic, PERRLA, EOMI, Mucous Membr. moist/pink Cardiovascular: Regular Rate, Normal S1, Normal S2, No Murmurs Lungs: Normal Air Movement Abdomen: Normal Bowel Sounds, Soft, No Tenderness Neurological: Normal Speech Extremities: No Clubbing, No Cyanosis, No Edema, Normal Pulses, tenderness on palpation of calves Vascular: Normal Pulses, Pulses Symmetrical Current Medications: Current Medications Sig/Elinor Start time Last Medication Dose Route Stop Time Status Admin Acetaminophen 650 MG Q6P PRN 09/29 0045 AC PO Acetaminophen 1,000 MG Q6P PRN 09/29 0045 AC 09/29 IV 0639 Acetaminophen 325 MG Q6 PRN 09/28 2130 AC PO Alprazolam 1 MG Q4-6 PRN PRN 09/29 1200 AC 09/29 PO 10/06 1159 1643 Apixaban 10 MG Q12H 09/29 1400 AC 09/29 PO 10/06 0201 1400 Heparin Sodium 0 .STK-MED ONE 09/28 2037 DC (Porcine) .ROUTE Heparin Sodium 5,000 UNIT ONCE ONE 09/29 1999 DC 09/28 (Porcine) IV 09/28 Heparin Sodium 25,000 UNIT Q24H 09/29 1999 DC 09/28 (Porcine) IV 09/29 1400 2040 Sodium Chloride 500 ML Levothyroxine Sodium 0.112 MG DAILY AC 09/29 0700 AC 09/29 PO 0503 Methadone HCl 30 MG DAILY 09/29 1157 AC 09/29 PO 1315 Methadone HCl 25 MG DAILY 09/29 0900 CAN PO Patient Medication 1 ED ONE ONE 09/29 1815 DC 09/29 Teaching ED 09/29 1816 1829 Last 24 Hrs of Lab/Trace Results Last 24 Hrs of Labs/Mics: Laboratory Tests 09/29/17 1532: APTT 71 H 09/29/17 0255: APTT 82 H, YOLETTE Titer ND, Anti-Nuclear Antibody NEG 1:40 IFA ASSAY 09/29/17 0040: Troponin I < 0.01 Assessment/Plan Assessment: Ms. Garcia is a 46yo F w/ PMH of migraine, hypothyroidism s/P thyroidectomy secondary to thyroid cancer, HLD, anxiety on Xanaxn prn, Hep C/IVDA, s/p hysterectomy 2/2 endometriosis, fibromyalgia that came in for 2 days worth of right sided neck, chest, back pain. Patient had no previous similar episodes, however states her grandmother had a blood clot history. Patient denies any OCP use as she is status post hysterectomy remotely, had no recent major surgeries, has been ambulatory, and had no recent long distance travel (last time was a few months ago). She notes a remote history of "skin bumps" at the back of her ear, that she questions was related to the use of Plaquenil. She used to see a heavy equipment plumbing supervisor in [place]. Patient denied any awareness of vocabulary including sarcoidosis/ lupus pertaining to her condition. Patient is a current smoker and denied fever /night sweat/weight change/cough/palpitation/exercise intolerance/abdominal pain /bowel movement/urinary abnormality,neurological disorders/mood change/insomnia/ dietary/appetite change. Patient is currently on 28mg of methadone daily dosed out by a facility that can be reached at [phone], Angela Francis is nurse. On admission, vitals: Stable afebrile, tachycardia on ER admission 102 decreased to 68, BP 103/59, 98% on room air. D-dimer is 893. Negative troponin. UA showing bactiuria. Chest CT positive for PE within a subsegmental branch of the right lower lobe. Associated small right pleural effusion. Patient started on heparin drip in ED. Plan Pulmonary embolism with lower extremity pain: patient presented with clinical findings of chest pain related to pulmonary embolism showing on CTA, without any acute EKG/troponin change. Patient is currently already on heparin drip, with no recent prolonged travel/sedatary life/major surgical history/malignancy, however questionable rheumatology related medical history (use of Plaquenil), and active smoker with PMH thyroid cancer and questionable family history. -Lower extremity doppler negative -Transition patient to Eliquis 10mg -Refer patient for workup outpatient with assistant film editor -SLE marker negative. Have patient follow up with her rheumatologists Dr. Betancourt/Dr. Colin outpatient. -Offer O2 as needed, patient is currently on room air #Methadone user -Patient usually takes liquid 28mg methadone daily -As we only have the pill version that comes in multiples of 10 that cannot be divided, we will give 30mg methadone while she is here. #Anxiety disorder -Patient has history somatic disorders, anxiety -Continue alprazolam 1mg q6 prn DVT prophylaxis Heparin drip + ALPS Heart healthy diet Full Code ` Problem List: 1. Pulmonary embolism 2. Chronic pain Pain Ratin Pain Location: left leg mostly but generalized Pain Goal: Pain 4 or less Pain Plan: pathway [facility] Labs & Rationales: cbc johnp Jovanna VELEZ,Jacklyn 09/29/17 1305: Attending MD Review Statement Attending Statement Attending MD Statement: examined this patient, discuss w/resident/PA/SPORTS MEDICINE COORDINATOR, agreed w/resident/PA/SPORTS MEDICINE COORDINATOR, discussed with family, reviewed EMR data (avail), discussed with nursing, discussed with case mgmt, amended to note Attending Assessment/Plan: Patient seen and examined. Lying comfortably in bed and not in any acute distress. Family present at the bedside. Denies shortness of breath at present. Denies chest pain. Patient reported having chronic left lower extremity pain lasting several months. Doppler of the lower extremity done today shows no evidence of deep vein thrombosis. In questioning she does not have any obvious triggers for her venous thromboembolism. She does have a history of thyroid cancer however this removed as she status post thyroidectomy. She reports fully routinely with her development scientist Dr. Roman. On examination she is not in any respiratory distress. She has adequate entry bilaterally. She has left lower extremity edema slightly tender to touch. Distal pulses are palpable. No ecchymosis or discoloration of the extremity. Problems: 1. Pulmonary embolism; unprovoked 2. Hypothyroidism 3. Anxiety disorder Plan: -Transition patient to anticoagulant therapy with Eliquis. -If she remains hemodynamically stable overnight with no respiratory complaints she may be discharged home. She should follow-up with the hematology service as an outpatient for further workup. -She is requesting referral to a new primary care provider. We will refer her to the given faculty physician. She should follow there to ensure she has all her age-appropriate cancer screening completed.
--- NOTE | 2017-09-29 12:37 | ULTRASOUND REPORT ---
EXAMINATION: US TRIPLEX OF LOWER EXTREMITIES, BILATERAL CLINICAL INFORMATION: Pulmonary emboli with bilateral lower extremity pain and tenderness COMPARISON: None TECHNIQUE: Color-flow triplex imaging with spectral analysis and compression Doppler were performed on the lower extremities. FINDINGS: Respiratory variation, normal compression and augmented flow are noted throughout the lower extremities. The visualized common femoral vein, superficial femoral vein, profunda femoral vein, popliteal vein and midcalf peroneal and posterior tibial venous segments show no evidence of deep venous thrombosis. There is no Storm's cyst. IMPRESSION: Normal triplex scan without evidence of deep venous thrombosis involving the lower extremities.
[2017-09-29] MEDS ORDERED: METHADONE HCL5 MG PO (14:21)
[2017-09-29] MEDS ORDERED: VESICARE5 M1 PO (14:22)
[2017-09-29] MEDS ORDERED: AMITRIPTYLINE H25 M2 PO (14:23)
[2017-09-29 15:15] VITALS: BP 118/72
[2017-09-29 17:00] LABS: PTT 71 SEC (25-37)
[2017-09-29 22:31] VITALS: BP 110/58
[2017-09-30 07:18] VITALS: BP 107/68
--- NOTE | 2017-09-30 07:37 | PN- Housestaff ---
Ludy VELEZ,Jacqueline 09/30/17 0736: Subjective Follow-up For: 1. Pulmonary embolism; unprovoked 2. Hypothyroidism 3. Anxiety 4. Fibromyalgia Review of Systems Constitutional: Reports: weakness. Cardiovascular: Reports: chest pain, peripheral edema. Respiratory: Reports: no symptoms. Gastrointestinal: Reports: no symptoms. Genitourinary: Reports: no symptoms. Musculoskeletal: Reports: back pain, joint pain, muscle pain, muscle stiffness. Skin: Reports: no symptoms. Objective Last 24 Hrs of Vital Signs/I&O Vital Signs Date Time Temp Pulse Resp B/P B/P Pulse O2 O2 Flow FiO2 Mean Ox Delivery Rate 09/30 717 97.7 62 20 107/68 96 Room Air 09/29 2231 98.2 61 110/58 96 Room Air Intake & Output 09/30 1600 09/30 0800 09/30 0000 Intake Total 500 300 300 Output Total Balance 500 300 300 Intake, IV 20 Intake, Oral 480 300 300 Physical Exam General Appearance: Alert, Oriented X3, Cooperative, No Acute Distress Skin: No Rashes, No Breakdown, No Significant Lesion Skin Temp/Moisture Exam: Warm/Dry HEENT: Atraumatic, PERRLA, EOMI, Mucous Membr. moist/pink Cardiovascular: Regular Rate, Normal S1, Normal S2, No Murmurs Lungs: Clear to Auscultation, Normal Air Movement Abdomen: Normal Bowel Sounds, Soft, No Tenderness Neurological: Normal Speech Extremities: No Clubbing, No Cyanosis, No Edema, Normal Pulses, no different in size of legs compared to yesterday, tender on palpation, bilateral lower extremities Vascular: Normal Pulses, Pulses Symmetrical Current Medications: Current Medications Sig/Elinor Start time Last Medication Dose Route Stop Time Status Admin Acetaminophen 650 MG Q6P PRN 09/29 0045 DCD 09/29 PO 2235 Acetaminophen 1,000 MG Q6P PRN 09/29 0045 DCD 09/29 IV 0639 Acetaminophen 325 MG Q6 PRN 09/28 2130 DCD PO Alprazolam 1 MG Q4-6 PRN PRN 09/29 1200 DCD 09/30 PO 10/06 1159 0828 Apixaban 10 MG Q12H 09/29 1400 DCD 09/30 PO 10/06 0201 0301 Levothyroxine Sodium 0.112 MG DAILY AC 09/29 0700 DCD 09/30 PO 0530 Methadone HCl 30 MG DAILY 09/29 1157 DCD 09/30 PO 0828 Patient Medication 1 ED ONE ONE 09/30 1230 DC 09/30 [facility] ED 09/30 1231 1227 Patient Medication 1 ED ONE ONE 09/29 1815 DC 09/29 [facility] ED 09/29 1816 1829 Assessment/Plan Assessment: Ms. Garcia is a 46yo F w/ PMH of migraine, hypothyroidism s/P thyroidectomy secondary to thyroid cancer, HLD, anxiety on Xanaxn prn, Hep C/IVDA, s/p hysterectomy 2/2 endometriosis, fibromyalgia that came in for 2 days worth of right sided neck, chest, back pain. Patient had no previous similar episodes, however states her grandmother had a blood clot history. Patient denies any OCP use as she is status post hysterectomy remotely, had no recent major surgeries, has been ambulatory, and had no recent long distance travel (last time was a few months ago). She notes a remote history of "skin bumps" at the back of her ear, that she questions was related to the use of Plaquenil. She used to see a internal combustion engine assembler in [place]. Patient denied any awareness of vocabulary including sarcoidosis/ lupus pertaining to her condition. Patient is a current smoker and denied fever /night sweat/weight change/cough/palpitation/exercise intolerance/abdominal pain /bowel movement/urinary abnormality,neurological disorders/mood change/insomnia/ dietary/appetite change. Patient is currently on 28mg of methadone daily dosed out by a facility that can be reached at [phone], Angela Francis is nurse. On admission, vitals: Stable afebrile, tachycardia on ER admission 102 decreased to 68, BP 103/59, 98% on room air. D-dimer is 893. Negative troponin. UA showing bactiuria. Chest CT positive for PE within a subsegmental branch of the right lower lobe. Associated small right pleural effusion. Patient started on heparin drip in ED. Plan Pulmonary embolism with lower extremity pain: patient presented with clinical findings of chest pain related to pulmonary embolism showing on CTA, without any acute EKG/troponin change. Patient is currently already on heparin drip, with no recent prolonged travel/sedatary life/major surgical history/malignancy, however questionable rheumatology related medical history (use of Plaquenil), and active smoker with PMH thyroid cancer and questionable family history. -Lower extremity doppler negative -Transition patient to Eliquis 10mg -Refer patient for workup outpatient with geospatial systems integrator -SLE marker negative. Have patient follow up with her rheumatologists Dr. Betancourt/Dr. Colin outpatient. -Offer O2 as needed, patient is currently on room air #Methadone user -Patient usually takes liquid 28mg methadone daily -As we only have the pill version that comes in multiples of 10 that cannot be divided, we will give 30mg methadone while she is here. #Anxiety disorder -Patient has history somatic disorders, anxiety -Continue alprazolam 1mg q6 prn DVT prophylaxis Heparin drip + ALPS Heart healthy diet Full Code Problem List: 1. Pulmonary embolism 2. Chronic pain Pain Ratin Pain Location: widespread Pain Goal: Pain 4 or less Pain Plan: pathway [facility] Labs & Rationales: patient is to be discharged Jacklyn Nugent MD 09/30/17 1327: Attending MD Review Statement Attending Statement Attending MD Statement: examined this patient, discuss w/resident/PA/CHIEF MARKETING OFFICER, agreed w/resident/PA/CHIEF MARKETING OFFICER, reviewed EMR data (avail), discussed with nursing, discussed with case mgmt, amended to note Attending Assessment/Plan: Patient seen and examined. Sitting up in bed, she is anxious about her diagnosis. She reports chest discomfort with deep inspiration. Denies cough. Reports some shortness of breath with exertion. On examination she is not in any respiratory distress, she is not requiring oxygen supplementation, she has adequate entry bilaterally with no added sounds. She has persistent left lower extremity swelling. Dopplers of lower extremities showed no evidence of deep vein thrombosis. CT abdomen pelvis done on admission showed no evidence of obstructive lymphadenopathy or mass. It is unclear why she has the chronic left lower extremity swelling. She has evidence of congestive heart failure. Recommend echocardiogram as an outpatient. Leg swelling is likely related likely related to lymphedema. Plan: -She is medically stable to be discharged home today. -She will be discharged home on Eliquis has been provided clear instructions on medication. She has also been provided clear instructions on risk of bleeding. -She is to follow-up with the hematology service as an outpatient for further workup. -She will be provided referral to primary care provider. She is to have his appropriateness cancer screening.
[2017-09-30] MEDS ORDERED: ELIQUIS5 M1 PO ×2 (09:49→11:20)
--- NOTE | 2017-09-30 11:05 | Patient Discharge Instructions ---
Discharge Instructions General Discharge Information You were seen/treated for: pulmonary embolism Special Instructions: 1. follow up with new primary care doctor in one week 2. follow up with manager licensing in 2 weeks 3. follow up with [facility] outpatient psychiatry in 2 weeks 4. follow up with your rheumatologists Dr. Betancourt/Dr. Colin 5. Patient received 30mg methadone while here, last dosed on 09/30. She took none of her own methadone supply while here. Diet Continue normal diet: Yes Activity Full Activity/No Limits: Yes Acute Coronary Syndrome Inclusion Criteria At DC or during hospital stay patient has or had the following: ACS DIAGNOSIS No Discharge Core Measures Meds if any: Prescribed or Continued at Discharge Meds if any: NOT Prescribed or Continued at Discharge Congestive Heart Failure Inclusion Criteria At DC or during hospital stay patient has or had the following: CHF DIAGNOSIS No Discharge Core Measures Meds if any: Prescribed or Continued at Discharge Meds if any: NOT Prescribed or Continued at Discharge Cerebrovascular accident Inclusion Criteria At DC or during hospital stay patient has or had the following: CVA/TIA Diagnosis No Discharge Core Measures Meds if any: Prescribed or Continued at Discharge Meds if any: NOT Prescribed or Continued at Discharge Venous thromboembolism Inclusion Criteria VTE Diagnosis Yes VTE Type Pulmonary Embolism VTE Confirmed by (Test) CT CHEST ANGIOGRAM Discharge Core Measures - Per Current guidelines, there needs to be overlap - treatment for the first 5 days of Warfarin therapy. - If discharged on Warfarin prior to 5 days of - overlap therapy, the patient will need to be - assessed for post discharge needs including - *Post discharge parental anticoagulation - *Warfarin and/or parental anticoagulation education - *Follow up date to check INR post discharge At least 5 days overlap therapy as Inpatient No (patient on eliquis) Meds if any: Prescribed or Continued at Discharge Note: Overlap Therapy is Warfarin and Anticoagulant Meds if any: NOT Prescribed or Continued at Discharge
[2017-09-30] MEDS ORDERED: NICOTINE PATCH1 EAC3 TOP (11:23)
--- NOTE | 2017-10-01 11:02 | ECHOCARDIOGRAM REPORT ---
ROBIN CHAVEZ Age: 46 : 1970 Gender: F Exam Date: 09/30/2017 10:44 Exam Location: Echo Lab Ht (in): 64 Wt (lb): 181 BSA: 1.95 BP: 122 / 70 Ordering Physician: Susy Underwood MD Referring Physician: Susy Underwood MD Technologist: Kosta Trinidad [facility] Room Number: 210-2 Indications: HEART FAILURE Rhythm: Sinus Technical Quality: Fair, Technically difficult study FINDINGS Left Ventricle Normal size left ventricle. No obvious regional wall motion abnormalities. Normal left ventricular ejection fraction estimated at 60-65%. Right Ventricle Right ventricle not well visualized, grossly normal. Right Atrium Normal right atrial size. Left Atrium Normal left atrial size. Mitral Valve Structurally normal mitral valve. Aortic Valve Trileaflet aortic valve. Focal thickening of the aortic valve cusps. No aortic stenosis. No aortic regurgitation. Tricuspid Valve Tricuspid valve not well visualized, grossly normal. Trace tricuspid regurgitation. Pulmonic Valve Pulmonic valve not well visualized, grossly normal. Trace pulmonic regurgitation. Pericardium No pericardial effusion. Great Vessels Normal size aortic root and proximal ascending aorta. CONCLUSIONS 1. Minimal aortic sclerosis is present with no valvular stenosis or insufficiency. 2. The mitral valve is anatomically normal. 3. There is no pericardial fluid detected on this examination. 4. The left ventricular chamber size and systolic function are normal with no visible resting wall motion abnormalities. 5. Minimal tricuspid and pulmonic insufficiency are present. The RV systolic pressure could not be accurately assessed. Max Blanco M.D. (Electronically Signed) Final Date: 01 Oct 2017 11:02 MEASUREMENTS (Male / Female) Normal Values 2D ECHO LV Diastolic Diameter PLAX 4.5 cm 4.2 - 5.9 / 3.9 - 5.3 cm LV Systolic Diameter PLAX 3.1 cm 2.1 - 4.0 cm LV Fractional Shortening PLAX 31.5 % 25 - 46 % LV Ejection Fraction 2D Teich 59.5 % IVS Diastolic Thickness 0.8 cm LVPW Diastolic Thickness 0.9 cm LVPW Systolic Thickness 1.1 cm LV Relative Wall Thickness 0.4 RV Internal Dim ED PLAX 2.7 cm 1.9 - 3.8 cm LVOT Diameter 1.9 cm Aortic Root Diameter 2.5 cm LA Systolic Diameter LX 3.3 cm 3.0 - 4.0 / 2.7 - 3.8 cm LA Volume 24.0 cm 18 - 58 / 22 - 52 cm Ascending Aorta Diameter 2.8 cm DOPPLER AV Peak Velocity 121.0 cm/s AV Peak Gradient 5.9 mmHg AV Mean Velocity 79.2 cm/s AV Mean Gradient 3.0 mmHg AV Velocity Time Integral 23.0 cm LVOT Peak Velocity 108.0 cm/s LVOT Peak Gradient 4.7 mmHg LVOT Mean Velocity 66.3 cm/s LVOT Mean Gradient 2.0 mmHg LVOT Velocity Time Integral 21.8 cm LVOT Stroke Volume 61.8 cm AV Area Cont Eq vti 2.7 cm AV Area Cont Eq pk 2.5 cm MV Peak Velocity 71.7 cm/s MV Peak Gradient 2.1 mmHg MV Mean Velocity 52.3 cm/s MV Mean Gradient 1.0 mmHg Mitral E Point Velocity 79.5 cm/s Mitral A Point Velocity 60.7 cm/s Mitral E to A Ratio 1.3 MV PHT Velocity 78.7 cm/s MV Deceleration [place] 334.0 cm/s MV Pressure Half Time 70.7 ms MV Area PHT 3.1 cm MV Deceleration Time 197.0 ms PV Peak Velocity 111.0 cm/s PV Peak Gradient 4.9 mmHg LV E' Lateral Velocity 11.4 cm/s Mitral E to LV E' Lateral Ratio 7.0 LV E' Septal Velocity 11.7 cm/s Mitral E to LV E' Septal Ratio 6.8
== END 2017-09-30 12:55 | DRG 134 ==
LOC: ERH 14:01 → ERHI 20:09 → 2NB 20:09 → CANRESERV 20:53 → ENRESERV 20:53 → EDBEDREQTM 21:50 → EDBEDREQ 21:50 → ENRESERV 22:03 → ENTRNSPT 22:32 → EDTRNSPTSTS 22:38 → EDTRNSPT 22:38 → 2NB 22:51 → CMPTRNSPT 22:55 → 2NB 09-29 07:36 → ENPENDDIS 09-30 11:27 → 2NB 09-30 12:55
PROVIDERS: Emergency Medicine; Internal Medicine; Physician Assistant Medical
DX: I26.99 Other pulmonary embolism without acute cor pulmonale (principal); M79.7 Fibromyalgia; Z72.0 Tobacco use; F11.90 Opioid use, unspecified, uncomplicated; G43.909 Migraine, unspecified, not intractable, without status migrainosus; F41.9 Anxiety disorder, unspecified; Z85.850 Personal history of malignant neoplasm of thyroid; E89.0 Postprocedural hypothyroidism; E78.5 Hyperlipidemia, unspecified; Z88.8 Allergy status to other drugs, medicaments and biological substances; B18.2 Chronic viral hepatitis C
CPT/HCPCS: 2NBSP; 36592; 71046; 74177; 81001; 93005; 93010; 93306; 93970; 96374; 99291; J0131; J1644; J1885